=== PATIENT | male | born 1950 | race Caucasian/White ===

== ENCOUNTER → 2017-05-05 | Outpatient (CLI) | payer OTHER ==
[~2017-05-05] MED LIST: AMITRIPTYLINE25 MG PO; CARDOXIN0.25 MG PO; CELEBREX; CELEBREX100 MG PO; DILTIAZEM240 MG PO; FIORICET 325 MG1 TAB PO; IMITREX100 MG PO; LISINOPRIL20 MG PO; METFORMIN500 MG PO; PANTOPRAZOLE40 M1 PO; PHENERGAN25 M1 PO
[2017-05-05 09:43] LABS: ALBUMIN 3.6 gm/dl (3.1-4.5); BUN 17 mg/dl (7-24); CHLORIDE 110 mmol/L (98-107); CHOLESTEROL 184 mg/dL (<200); SGPT/ALT 22 U/L (12-78); SODIUM 142 mmol/L (136-145)
[2017-05-05 09:46] LABS: ALKALINE PHOSPHATASE 77 U/L (45-117); HDL CHOLESTEROL 61 mg/dl (40-60); LDL CHOLESTEROL 101 mg/dL (9-159); SGOT/AST 15 IU/L (3-35); TOTAL PROTEIN 7.2 gm/dL (6.4-8.2); TRIGLYCERIDES 110 mg/dl (<150); VLDL CHOLESTEROL 22 mg/dL (6-40)
== END | disposition home or self-care (01) ==
LOC: LAB 08:46
PROVIDERS: Family Medicine
DX: Z00.01 Encounter for general adult medical examination with abnormal findings (principal); R73.01 Impaired fasting glucose; R79.89 Other specified abnormal findings of blood chemistry; Z72.89 Other problems related to lifestyle

== ENCOUNTER → 2023-07-13 | Outpatient (CLI) | payer MEDICARE | END | disposition home or self-care (01) | LOC: RESCLI 13:50 | PROVIDERS: ATTEND Family Medicine | DX: I48.91 Unspecified atrial fibrillation (principal); F41.1 Generalized anxiety disorder; R32 Unspecified urinary incontinence; K27.9 Peptic ulcer, site unspecified, unspecified as acute or chronic, without hemorrhage or perforation; G43.909 Migraine, unspecified, not intractable, without status migrainosus; M81.0 Age-related osteoporosis without current pathological fracture; E78.5 Hyperlipidemia, unspecified; E11.9 Type 2 diabetes mellitus without complications; I11.0 Hypertensive heart disease with heart failure; I50.30 Unspecified diastolic (congestive) heart failure; Z88.5 Allergy status to narcotic agent; Z79.01 Long term (current) use of anticoagulants; Z98.890 Other specified postprocedural states; Z90.710 Acquired absence of both cervix and uterus; Z79.84 Long term (current) use of oral hypoglycemic drugs; Z79.899 Other long term (current) drug therapy ==

== ENCOUNTER → 2023-07-16 | Outpatient (CLI) | payer MEDICARE ==
[2023-07-16 11:46] LABS: ACT PARTIAL THROMBO TIME 26.5 SECONDS (20.0-32.1)
[2023-07-16 11:59] LABS: BUN 11 mg/dl (9-23); CHLORIDE 110 mmol/L (98-107); POTASSIUM 3.8 mmol/L (3.4-5.1)
== END | disposition home or self-care (01) ==
LOC: LAB 11:19
PROVIDERS: ATTEND Internal Medicine
DX: I48.91 Unspecified atrial fibrillation (principal)

== ENCOUNTER 2024-05-24 13:14 | Emergency (ER) | payer MEDICARE ==
[~2024-05-24] VITALS: Wt 104.3 kg
[2024-05-24 14:07] LABS: BASO % 0.4 % (0.0-1.0); EOS # 0.1 10*3/uL (0.0-0.4); EOS % 1.1 % (1.0-4.0); HEMATOCRIT 35.6 % (37.0-47.0); LYMPH # 0.9 10*3/uL (1.3-4.4); LYMPH % 7.6 % (27.0-41.0); MEAN CELL VOLUME 95.2 fl (81.0-99.0); MEAN CORPUSCULAR HGB 30.5 pg (27.0-31.0); MEAN PLATELET VOLUME 8.4 fl (9.6-12.3); MONO # 0.7 10*3/uL (0.1-1.0); NEUT # 9.6 10*3/uL (2.3-7.9); NEUT % 84.6 % (47.0-73.0); PLATELET COUNT AUTOMATED 524 10*3/uL (130-400); RED BLOOD COUNT 3.74 10*6/uL (4.10-5.10); RED CELL DISTRI WIDTH 13.7 % (0-14.5); WHITE BLOOD COUNT 11.4 10*3/uL (4.8-10.8)
[2024-05-24 14:26] LABS: BUN 11 mg/dl (9-23); CHLORIDE 106 mmol/L (98-107); POTASSIUM 3.8 mmol/L (3.4-5.1)
[2024-05-24] MEDS ORDERED: Na Phos, Dibasic/Na Phos, Mo 1 EA BOT R ONE (15:30)
[2024-05-24] MEDS ORDERED: GLYCERIN 1 SUPP SUPP R ONE (15:30)
[2024-05-24] MEDS ORDERED: MAGNESIUM CITRATE 296 ML BOT PO ONE (15:30)
[2024-05-24] MEDS ORDERED: ALPRAZolam 0.5 MG TAB PO ONE (17:45)
[2024-05-24] MEDS ORDERED: ALPRAZolam 0.25 MG TAB PO ONE (17:45)
== END 2024-05-24 19:44 | disposition home or self-care (01) ==
LOC: ED 13:14
PROVIDERS: Nurse Practitioner
DX: K59.00 Constipation, unspecified (principal); I10 Essential (primary) hypertension; I48.91 Unspecified atrial fibrillation; Z88.6 Allergy status to analgesic agent; Z88.5 Allergy status to narcotic agent; Z88.8 Allergy status to other drugs, medicaments and biological substances; Z90.710 Acquired absence of both cervix and uterus; Z98.890 Other specified postprocedural states; Z90.49 Acquired absence of other specified parts of digestive tract

== ENCOUNTER → 2024-08-30 | Outpatient (CLI) | payer MEDICARE | END | disposition home or self-care (01) | LOC: RESCLI 01:37 | PROVIDERS: ATTEND Family Medicine | DX: I48.91 Unspecified atrial fibrillation (principal); G43.909 Migraine, unspecified, not intractable, without status migrainosus; I50.30 Unspecified diastolic (congestive) heart failure; K27.9 Peptic ulcer, site unspecified, unspecified as acute or chronic, without hemorrhage or perforation; E11.9 Type 2 diabetes mellitus without complications; F41.9 Anxiety disorder, unspecified; Z88.5 Allergy status to narcotic agent; Z98.890 Other specified postprocedural states; Z95.5 Presence of coronary angioplasty implant and graft; Z79.01 Long term (current) use of anticoagulants; Z79.899 Other long term (current) drug therapy; Z79.84 Long term (current) use of oral hypoglycemic drugs ==